=== PATIENT | female | born 1960 | race Caucasian/White ===

== ENCOUNTER 2016-11-29 20:58 | Emergency (ER) | payer SELFPAY ==
[~2016-11-29] VITALS: Ht 160 cm; Wt 68.8 kg
[~2016-11-29 20:58] MED LIST: CIPRODEX OTIC7.5 ML LEFT EAR; DEBROX15 ML RIGHT EAR; FLONASE16 G1 BOTH NARES; KEFLEX500 MG PO; LEXAPRO10 MG PO; NOHOMEMEDS; TYLENOL REGULA325 MG PO
[2016-11-29 21:48] LABS: HEMATOCRIT 38.4 % (36.0-46.0); MCH 27.9 PG (29.0-34.0); MCHC 32.8 G/DL (30.0-36.0); MCV 85.1 FL (83-99); MEAN PLAT.VOLUME 11.8 uM^3 (9.5-12.4); PLATELET COUNT 155 K/uL (156-360); RBC DIS.WIDTH-CV 13.2 % (11.8-14.6); RBC DIS.WIDTH-SD 41.7 % (39-53); RED BLOOD COUNT 4.51 M/uL (3.80-5.20); WHITE BLOOD COUNT 8.3 K/uL (4.1-10.2)
[2016-11-29 22:00] LABS: CHLORIDE 106 mEq/L (99-109); POTASSIUM 3.3 mEq/L (3.7-5.4); SODIUM 138 mEq/L (136-147)
[2016-11-29 22:02] LABS: GLUCOSE 109 mg/dL (70-99)
[2016-11-29 22:04] LABS: ANION GAP 8 MEQ/L (2-14)
[2016-11-29 22:06] LABS: ALKALINE PHOSPHATASE 83 IU/L (3-129); GFR ESTIMATE (CALCULATED) > 59 mL/min/
[2016-11-29 22:07] LABS: UREA NITROGEN (BUN) 15 mg/dL (9-23)
[2016-11-29 22:14] LABS: TOTAL BILIRUBIN 1.1 mg/dL (0.0-1.0)
[2016-11-29 22:14] LABS: ADD MIUA? YES; BILIRUBIN NEGATIVE; BLOOD SMALL; COLOR YELLOW ((YELLOW)); GLUCOSE (STRIP) 50; KETONES 5; LEUKOCYTES SMALL; NITRITE POSITIVE; PROTEIN (STRIP) 30; SPECIFIC GRAVITY 1.025 (1.000-1.030); UROBILINOGEN 0.2 MG/DL (0.2-1.0)
[2016-11-29 22:28] LABS: BACTERIA 3+ /HPF; EPITHELIAL CELLS 1+ /HPF; HYALINE CASTS 0-5 /LPF; MUCUS 2+ /LPF; RED BLOOD CELLS 0-5 /HPF (0-5); UCUL ADDED? YES; WHITE BLOOD CELLS CLUMP RARE /HPF (0-5)
[2016-11-29 22:38] LABS: TROP-I INTERPRETATION NEGATIVE; TROPONIN-I < 0.01 ng/mL (0.0-0.30)
[2016-11-30] MEDS ORDERED: MACROBID100 MG PO (01:02)
[2016-11-30 01:18] VITALS: BP 76/50
== END 2016-11-29 23:47 | disposition home or self-care (01) ==
LOC: EME 20:58
DX: N39.0 Urinary tract infection, site not specified (principal); R00.2 Palpitations; R50.9 Fever, unspecified; R03.0 Elevated blood-pressure reading, without diagnosis of hypertension
CPT/HCPCS: 80053; 81003; 84443; 84484; 85027; 87077; 87086; 87186; 93005; 99281; 99283

== ENCOUNTER 2017-06-29 23:17 | Emergency (ER) | payer OTHER ==
[~2017-06-29] VITALS: Ht 160 cm; Wt 71.4 kg
[~2017-06-29 23:17] MED LIST changes: +MACROBID100 MG PO
[2017-06-30] MEDS ORDERED: NORCO 5/3251 TABLET PO (01:11)
[2017-06-30 01:34] VITALS: BP 152/79
== END 2017-06-30 01:35 | disposition home or self-care (01) ==
LOC: EME 23:17
DX: S90.32XA Contusion of left foot, initial encounter (principal); X58.XXXA Exposure to other specified factors, initial encounter
CPT/HCPCS: 73630; 99281; 99284